=== PATIENT | female | born 1955 | race Caucasian/White ===

== ENCOUNTER 2023-11-01 08:38 | Emergency (ER) | payer BC, SELFPAY ==
[2023-11-01 08:40] VITALS: BP 172/90
--- NOTE | 2023-11-01 10:26 | ED.MUSCINJ ---
HPI-Injury
General
Chief Complaint: Musculo-Skeletal Complaint
Source: patient
Exam Limitations: none
Time Seen by Provider: 11/01/23 09:15
Nursing documentation reviewed up to this point in time: agreed with
Travel History
Have you had any contact with someone who has COVID-19?: No
Do you have any symptoms of coronavirus? Fever > 100 degrees, chills, cough, shortness of breath, sore throat, loss of taste or smell, muscle aches, or headache?: No
History of Present Illness-Injury
Initial Injury comments:
68-year-old female with history of HLD, diverticulitis, GERD, bowel resection, anxiety presents with right side chest wall pain. She states she is going to physical therapy for some back and hip pain, 2 days ago she rolled over onto her right side
in physical therapy felt a pop in the pain in the right mid anterior lateral ribs and pain has been worsening since. She states Aleve helps the pain some. It is worse with coughing or bending over. She denies feeling short of breath.
Past History
Past History
ED Past Medical History: GERD, Hypercholesterolemia and Other (Diverticulitis with bowel resection)
ED Past Surgical History: Bowel resection
Social History
Tobacco: Former smoker
Alcohol: Occasional
Personal: Single
Living: alone
Family History
Family History: Other
Review of Systems
Review of Systems
Allergies reviewed?: Yes
All Other Systems: ROS reviewed and negative except as documented in HPI and ROS
Constitutional: Denies fever
Respiratory: Denies cough or trouble breathing
Cardiac: Denies chest pain
ABD/GI: Denies abdominal pain
Musculoskeletal: Reports other (Right side rib pain)
Skin: Reports no symptoms
Phy Exam
Physical Exam
Physical Exam:
GENERAL: No acute distress. A&Ox3.
CONSTITUTIONAL: Afebrile.
RESPIRATORY: Regular respirations, nonlabored, lungs clear.
CARDIOVASCULAR: Regular rate and rhythm, no murmurs, no rubs.
GI: Soft, nontender, normal BS
MUSCULOSKELETAL: Tender right lou-lateral mid ribs, no discoloration here. Moves with ease. Well perfused.
SKIN: Warm, dry, pink
PSYCH: Normal mood and affect. Well kept, interactive and appropriate
NEUROLOGIC: Awake, alert and oriented. No focal neurological deficits
Injury Course
Orders/Labs/Results
Orders:
Orders
11/01/23 09:16
Ribs, Right 3 View W/PA Chest [CR Ribs-right 3 Vw W/pa Chest*] Urgent
Comment:
Reason For Exam: [place] pop and pain during P/t
MDM/Problems Addressed
Differential Diagnosis Includes:
intercostal strain/sprain, rib fracture
MDM/Problems Addressed:
68-year-old female with history of HLD, diverticulitis, GERD, bowel resection, anxiety presents with right side chest wall pain. She states she is going to physical therapy for some back and hip pain, 2 days ago she rolled over onto her right side
in physical therapy felt a pop in the pain in the right mid anterior lateral ribs and pain has been worsening since. She states Aleve helps the pain some. It is worse with coughing or bending over. She denies feeling short of breath.
NAD, pulse ox 100% room air.
11/01/2023 1028 AM
Right rib x-rays radiology report read: No rib fractures or other acute abnormalities.
*Critical Care Note
Total Time (30-74mins, 75-104mins- exclusive of procedures): Not Applicable
ED Attending Note
-
Portions of this chart may have been created with voice recognition software.� Occasional wrong word or��sound alike� substitutions may have occurred due to the inherent limitations of voice recognition software.
Discharge Plan
Departure
Patient Disposition: Home (Routine Discharge)
Date of Disposition: 11/01/23
Time of Disposition: 10:30
Patient with high blood pressure during this ER visit?: No
Condition: Good
Discharge Problem:
Rib sprain
Instructions: Rib Fracture or Bruised Rib ED
Prescriptions:
No Action
atorvastatin 10 MG tablet
10 mg PO DAILY
escitalopram oxalate 5 MG tablet
5 mg PO HS
calcium carbonate 600 MG tablet
600 mg PO QPM
multivitamin with folic acid [Tab-A-Kaia] 1 TABLET tablet
1 tab PO QPM
hydrocodone-acetaminophen 1 TABLET tablet
1 tab PO Q4HPRN PRN (Reason: moderate pain) Qty: 25 0RF
Referrals:
Li Milner, DO [Family Provider] - As needed
Activity Restrictions/Additional Instructions:
As we discussed, your rib and chest x-ray showed nothing worrisome, specifically no rib fractures or displacement.
Continue Aleve since it helps
I have provided you with information on fractured ribs FYI as a treatment for this rib pain is similar.
Splint the area with your hand or a rolled up towel or small firm pillow if you cough, sneeze coming on.
This may take a several weeks to heal
Interventions
Interventions:
*Risk Screen - Suicide Last Done: 11/01/23 08:40
*General Assessment Last Done: 11/01/23 08:40
*Neglect/Abuse Screening Last Done: 11/01/23 08:40
*Nursing Disposition Last Done: 11/01/23 10:41
ED-Musculoskeletal Assessment Last Done: 11/01/23 09:10
Discharge Date and Time
Discharge Date/Time: 11/01/23 10:41
[2023-11-01 10:32] VITALS: BP 131/73
== END 2023-11-01 10:41 | disposition home or self-care (01) ==
LOC: EMR 08:38
PROVIDERS: EMERGENCY PHYSICIAN Emergency Medicine; FAMILY PHYSICIAN Family Medicine
DX: S23.41XA Sprain of ribs, initial encounter (principal); X50.1XXA Overexertion from prolonged static or awkward postures, initial encounter; E78.00 Pure hypercholesterolemia, unspecified; K21.9 Gastro-esophageal reflux disease without esophagitis; Z87.891 Personal history of nicotine dependence
CPT/HCPCS: 99283; 71101

== ENCOUNTER → 2023-12-11 08:58 | Outpatient (REF) | payer BC, SELFPAY | LOC: HWRAD 08:58 | PROVIDERS: ATTENDING PHYSICIAN Internal Medicine Critical Care Medicine; FAMILY PHYSICIAN Family Medicine | DX: Z87.891 Personal history of nicotine dependence (principal) | CPT/HCPCS: 71271 ==

== ENCOUNTER 2024-02-17 11:00 | Emergency (ER) | payer BC, SELFPAY ==
[2024-02-17 11:04] VITALS: BP 129/96
--- NOTE | 2024-02-17 11:34 | ED.GENMED ---
History of Present Illness
General
Chief Complaint: Musculo-Skeletal Complaint
Source: patient
Time Seen by Provider: 02/17/24 11:27
Travel History
Have you had any contact with someone who has COVID-19?: No
Do you have any symptoms of coronavirus? Fever > 100 degrees, chills, cough, shortness of breath, sore throat, loss of taste or smell, muscle aches, or headache?: No
History of Present Illness
History of Present Illness:
68-year-old female presenting to the emergency department for evaluation of right foot pain and swelling that started about 3 days ago, patient states the only injury she can think of was when she excellently dropped something onto her foot but
notes it did not cause her pain at that time. Patient states that gradually she started to have increased pain and pressure while ambulating. No other injuries were sustained. Patient does note a previous history of fracture to the fifth
metatarsal on the same foot.
Past History
Past History
ED Past Medical History: GERD, Hypercholesterolemia and Other (Diverticulitis with bowel resection)
ED Past Surgical History: Bowel resection
Social History
Tobacco: Former smoker
Alcohol: Occasional
Drug: None
Personal: Single
Living: alone
Family History
Family History: Other
Review of Systems
Review of Systems
All Other Systems: ROS reviewed and negative except as documented in HPI and ROS
Phy Exam
Physical Exam
Physical Exam:
GENERAL: Alert , in no apparent distress
EYE: conjunctiva clear
Head: Normocephalic atraumatic
NECK: Supple,
ENT: mmm.
LUNGS: no acute respiratory distress
NEUROLOGICAL: Alert and oriented
SKIN: Warm and dry, skin intact.
MUSCULOSKELETAL: Right foot: Mild soft tissue swelling to the dorsal portion of the right foot at the distal first and second metatarsal. Easily palpable pedal and tibial pulse. Cap refill less than 2 seconds and sensation is grossly intact to
light touch
PSYCH: Normal and appropriate interaction.
Scores
Heart Failure Risk
Heart Failure Risk Score: Not Applicable
Heart Score for Chest Pain Patients
STEMI patient?: Not applicable
Withdrawal Assessment of Alcohol
Withdrawal Assessment Completed?: Not applicable
Course
Orders/Labs/Results
Orders:
Orders
02/17/24 11:06
Foot, Right 3 View [CR Foot - Right Min 3 Views] Urgent
Comment:
Reason For Exam: pain
Vital Signs
Initial and Last Documented VS:
Initial Vital Signs
Temp Pulse Resp BP Pulse Ox
98.1 F 108 18 129/96 97
02/17/24 11:04 02/17/24 11:04 02/17/24 11:04 02/17/24 11:04 02/17/24 11:04
Last Documented Vital Signs
Temp Pulse Resp BP Pulse Ox
98.1 F 108 18 129/96 97
02/17/24 11:04 02/17/24 11:04 02/17/24 12:05 02/17/24 11:04 02/17/24 11:04
MDM/Problems Addressed
Differential Diagnosis Includes:
Contusion, sprain, fracture
MDM/Problems Addressed:
68-year-old female presenting to the emergency department for evaluation of right foot injury/pain. Increased pain while ambulating. X-ray was ordered from triage and there is no acute fracture seen. Advised compression, ice and elevation,
NSAIDs/Tylenol as needed for pain. Patient is otherwise stable for discharge home and outpatient management as needed.
*Radiology
Radiology exam reviewed: preliminary read by ED provider (No acute fracture)
*Pulse Oximetry
Patient hypoxic: no
*Critical Care Note
Total Time (30-74mins, 75-104mins- exclusive of procedures): Not Applicable
ED Attending Note
-
Portions of this chart may have been created with voice recognition software.� Occasional wrong word or��sound alike� substitutions may have occurred due to the inherent limitations of voice recognition software.
Discharge Plan
Departure
Patient Disposition: Home (Routine Discharge)
Date of Disposition: 02/17/24
Time of Disposition: 11:34
Patient with high blood pressure during this ER visit?: No
Discharge Problem:
Foot pain, right
Instructions: Metatarsalgia (DC)
Prescriptions:
No Action
atorvastatin 10 MG tablet
10 mg PO DAILY
escitalopram oxalate 5 MG tablet
5 mg PO HS
calcium carbonate 600 MG tablet
600 mg PO QPM
multivitamin with folic acid [Tab-A-Kaia] 1 TABLET tablet
1 tab PO QPM
hydrocodone-acetaminophen 1 TABLET tablet
1 tab PO Q4HPRN PRN (Reason: moderate pain) Qty: 25 0RF
Referrals:
Angel Chao DPM [Specified Professional Personl] - (Podiatry)
Interventions
Interventions:
*Risk Screen - Suicide Last Done: 02/17/24 11:04
*General Assessment Last Done: 02/17/24 11:04
*Neglect/Abuse Screening Last Done: 02/17/24 11:04
ED- Fall Risk Assessment Last Done: 02/17/24 12:10
*ED COVID-19 Vaccine History Last Done: 02/17/24 11:04
*Nursing Disposition Last Done: 02/17/24 12:10
ED-Musculoskeletal Assessment Last Done: 02/17/24 12:05
Discharge Date and Time
Discharge Date/Time: 02/17/24 12:07
Print Language: [id number]
== END 2024-02-17 12:07 | disposition home or self-care (01) ==
LOC: EMR 11:00
PROVIDERS: EMERGENCY PHYSICIAN Emergency Medicine; FAMILY PHYSICIAN Family Medicine
DX: M79.671 Pain in right foot (principal); Z87.891 Personal history of nicotine dependence
CPT/HCPCS: 99283; 73630

== ENCOUNTER → 2025-01-01 08:57 | Outpatient (REF) | payer BC, SELFPAY | LOC: HWRAD 08:57 | PROVIDERS: ATTENDING PHYSICIAN Internal Medicine Critical Care Medicine; FAMILY PHYSICIAN Family Medicine | DX: Z87.891 Personal history of nicotine dependence (principal) | CPT/HCPCS: 71271 ==

== ENCOUNTER → 2025-03-23 07:49 | Outpatient (REF) | payer BC, SELFPAY | LOC: HWRAD 07:49 | PROVIDERS: ATTENDING PHYSICIAN Nurse Practitioner Women's Health; FAMILY PHYSICIAN Family Medicine; REFERRING PHYSICIAN Physician Assistant | DX: R14.0 Abdominal distension (gaseous) (principal); R19.7 Diarrhea, unspecified | CPT/HCPCS: 74018; 76830; 76856 ==

== ENCOUNTER → 2025-05-27 14:14 | Outpatient (REF) | payer BC, SELFPAY | LOC: HWRAD 14:14 | PROVIDERS: ATTENDING PHYSICIAN Physician Assistant | DX: J44.1 Chronic obstructive pulmonary disease with (acute) exacerbation (principal) | CPT/HCPCS: 71046 ==